=== PATIENT | female | born 1990 | race Caucasian/White ===

== ENCOUNTER 2016-10-31 10:37 | Emergency (ER) | payer OTHER ==
[2016-10-31 11:00] LABS: HEMOGLOBIN 13.3 gm/dl (12.3-15.3); RED BLOOD COUNT 4.17 M/UL (4.00-5.10); WHITE BLOOD COUNT 14.6 K/UL (4.5-11.0)
[2016-10-31 12:07] LABS: BUN/CREATININE RATIO 24 (0-10)
== END 2016-10-31 15:20 | disposition home or self-care (01) ==
LOC: ER1 10:37
PROVIDERS: Specialist/Technologist Athletic Trainer
DX: N83.201 Unspecified ovarian cyst, right side (principal); R82.4 Acetonuria; E86.0 Dehydration; D72.829 Elevated white blood cell count, unspecified
CPT/HCPCS: 36415; 80053; 81001; 83605; 83690; 84703; 85025; 96361; 96374; 96375; 99284; J2270; J2405; J7040; J7050; Q9962